=== PATIENT | female | born 1960 | race Caucasian/White ===

== ENCOUNTER 2016-04-20 12:00 | Inpatient (IN) | payer OTHER ==
[~2016-04-20] VITALS: Ht 152.4 cm; Wt 75.7 kg
[~2016-04-20 12:00] MED LIST: ADVIN10/60 INH; ALBU1AER9 INH; B COCAP3 PO; CRG25 PO; DULO60CA44 PO; FLUT0.15 NAE; HYDR25CA PO; IBUP-1050 PO; MARIJAUNA INH; MIRT30TA2 PO
[2016-04-20] MEDS ORDERED: VNTHFA/IN INH (12:28)
[2016-04-20] MEDS ORDERED: SODIUM CHLORIDE 0.9% 1000ML 1,000 ML IV STA (13:02)
--- NOTE | 2016-04-20 13:37 | DIAGNOSTIC IMAGING REPORT ---
CHEST ONE VIEW PORTABLE CLINICAL HISTORY: Acute change in mental status COMPARISON STUDY: October 07, 2012 FINDINGS: The heart is at the upper limits of normal in size. There is no overt failure. There is no focal pulmonary consolidation. There are no pleural effusions.[ IMPRESSION: No active disease in the chest. Electronically signed by: Bethel Olivas M.D. 04/20/2016 1:36 PM Dictated Date/Time: 04/20/2016 1:28 PM
--- NOTE | 2016-04-20 13:45 | DIAGNOSTIC IMAGING REPORT ---
HEAD CT NONCONTRAST CT DOSE: HISTORY: Altered mental status. Confusion. TECHNIQUE: Multiaxial CT images of the head were performed without the use of intravenous contrast. Automated exposure control was utilized for this study. Comparison: Head CT 11/25/2013. Findings: Mild mucosal thickening within the ethmoid air cells. The mastoid air cells are clear. The calvarium and skull base are intact. The ventricles and sulci are within normal limits. There is no mass, hematoma, midline shift, or acute infarct. Small hypodensity within the left parietal lobe remains unchanged. This favors an old lacunar infarct. Impression: No significant change compared to the prior study. No acute intracranial abnormality. Electronically signed by: Guevara Germain M.D. 04/20/2016 1:44 PM Dictated Date/Time: 04/20/2016 1:40 PM
--- NOTE | 2016-04-20 13:48 | DIAGNOSTIC IMAGING REPORT ---
CT OF THE CERVICAL SPINE CLINICAL HISTORY: Neck pain status post trauma COMPARISON STUDY: No previous studies for comparison. CT DOSE: 1045.13 mGy.cm TECHNIQUE: CT scan of the cervical spine was performed from the skull base to the thoracic inlet. Images are reviewed in the axial, sagittal, and coronal planes. IV contrast was not administered for this examination. FINDINGS: The visualized portions of the lung apices reveal no evidence of pneumothorax. The prevertebral soft tissues are normal. No fractures or subluxations are visualized. There are mild degenerative changes most pronounced at the C5-6 level. There is straightening of the normal cervical lordosis. IMPRESSION: No evidence of acute fracture or traumatic subluxation. Electronically signed by: Bethel Olivas M.D. 04/20/2016 1:46 PM Dictated Date/Time: 04/20/2016 1:45 PM
[2016-04-20 14:06] LABS: BASO % 0.4 %; BASO ABS # 0.03 K/uL (0-0.2); COMPLETE YES; HEMATOCRIT 38.7 % (37-47); IG% 0.1 %; LYMPH % 37.8 %; LYMPH ABS # 2.55 K/uL (1.2-3.4); MEAN CELL VOLUME 96.3 fL (80-100); MEAN CORPUSCULAR HEMOGLOBIN 32.8 pg (25-34); MEAN CORPUSCULAR HGB CONC 34.1 g/dl (32-36); MEAN PLATELET VOLUME 8.7 fL (7.4-10.4); MONO % 7.4 %; NEUT % 51.3 %; PLATELET COUNT 371 K/uL (130-400); RED BLOOD COUNT 4.02 M/uL (4.2-5.4); WHITE BLOOD COUNT 6.74 K/uL (4.8-10.8)
[2016-04-20 14:13] LABS: PARTIAL THROMBOPLASTIN RATIO 1.1; PROTHROMBIN TIME (PATIENT) 11.2 SECONDS (9.0-12.0)
[2016-04-20 14:17] LABS: URINE APPEARANCE CLEAR (CLEAR); URINE BILIRUBIN NEG (NEG); URINE COLOR YELLOW; URINE EPITHELIAL CELL AUTO 0-5 /lpf (0-5); URINE NITRITE NEG (NEG); URINE SPECIFIC GRAVITY 1.014 (1.000-1.030); UROBILINOGEN NEG (NEG); ZZURINE CULT IF INDIC CATH NO
[2016-04-20 14:19] LABS: MANUAL MICROSCOPIC REQUIRED? NO; REVIEW REQ? NO
[2016-04-20 14:23] LABS: ALT/SGPT 22 U/L (12-78); BLOOD UREA NITROGEN 7 mg/dl (7-18); BUN/CREATININE RATIO 10.1 (10-20); CALCIUM 8.8 mg/dl (8.5-10.1); CARBON DIOXIDE 24 mmol/L (21-32); CHLORIDE 114 mmol/L (98-107); CREATININE 0.73 mg/dl (0.60-1.20); GLUCOSE 82 mg/dl (70-99); POTASSIUM 3.5 mmol/L (3.5-5.1); SODIUM 146 mmol/L (136-145)
[2016-04-20 14:31] LABS: ALKALINE PHOSPHATASE 72 U/L (45-117); AST/SGOT 14 U/L (15-37)
[2016-04-20 14:43] LABS: BENZODIAZEPINE, URINE POS (NEG); COCAINE,URINE NEG (NEG); PHENCYCLIDINE, URINE NEG (NEG)
[2016-04-20 14:46] LABS: ACETAMINOPHEN < 2 ug/ml (10-30)
--- NOTE | 2016-04-20 15:03 | EMERGENCY ROOM VISIT NOTE ---
History Report prepared by Vidya: Klever Kuo Under the Supervision of: Dr. Shreyas Alberts D.O. First contact with patient: 12:55 Chief Complaint: ALTERED MENTAL STATUS Stated Complaint: SICK, RETAINING FLUIDS, Nursing Triage Summary: Pt reports she has been sick with a cough for a couple weeks recently on keflex and z pack for this last night pt noticed her balanced was off, she has been falling Pt with abrasion type wound to left chest, does not know how she got it Bilat hands and feet swollen that started yesterday. Facial swelling Healing burn to left post forearm at bedside and reports pt is "off" Pt very sleeping, opens eyes to verbal stimuli History of Present Illness The patient is a 55 year old female who presents to the Emergency Room for an altered mental status that began last night several hours prior to arrival. The patient states that when she woke up this morning she was off balance. She fell multiple times throughout this morning, secondary to her lack of coordination. She denies passing out from these falls. The patient was recently on an Azithromycin-Sal for an upper respiratory infection that began 1.5 weeks prior to this visit. The patient does note having prescriptions for an unspecified Benzodiazepine, but denies trying to overdose today. Patient is confused and has difficulty staying awake during interview. History is limited secondary to this. 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 A total of 10 systems reviewed and were otherwise negative. Past Medical & Surgical Medical Problems: (1) Alcohol intoxication (2) Altered mental status (3) Benzodiazepine withdrawal (4) Chronic obstructive lung disease (5) Gait instability (6) Mood disorder (7) Seizure (8) Seizure (9) Seizure (10) Superficial laceration Family History Diabetes mellitus FH: lung disease Hypertension Seizures Social History Smoking Status: Current Every Day Smoker Drug Use: marijuana Marital Status: Housing Status: lives with family Occupation Status: disabled Current/Historical Medications Scheduled B Complex W/ C (Vitamin B Complex-C), 1 CAP PO DAILY Carvedilol (Carvedilol), 25 MG PO BID Duloxetine Hcl (Cymbalta), 60 MG PO DAILY Fluticasone Prop/Salmeterol (Advair Diskus 100/50 60 Dose), 1 PUFF INH BID Hydroxyzine Pamoate (Vistaril), 1 CAP PO BID Mirtazapine Soltab (Remeron Soltab), 30 MG PO HS Scheduled PRN Albuterol Hfa (Ventolin Hfa), 2 PUFFS INH QID PRN for copd Fluticasone Propionate (Nasal) (Flonase Allergy Relief), 2 SPRAYS PURVI DAILY PRN for ALLERGIC REACTION Ibuprofen (Advil), 400-600 MG PO Q6H PRN for Pain or Fever Allergies Coded Allergies: Codeine (Verified Allergy, Intermediate, WELTS/HIVES, 04/20/16) TOLERATES PERCOCET Morphine (Verified Allergy, Unknown, HIVES/WELTS, 04/20/16) TOLERATES PERCOCET Sulfamethoxazole w/Trimethoprim (Verified Adverse Reaction, Mild, GI SYMPTOMS, 04/20/16) Physical Exam Vital Signs Date Time Temp Pulse Resp B/P Pulse Ox O2 Delivery O2 Flow Rate FiO2 04/20/16 15:17 71 16 139/96 95 Room Air 04/20/16 13:56 74 16 160/105 98 Room Air 04/20/16 12:27 71 04/20/16 12:09 36.9 79 18 146/102 96 Room Air Physical Exam GENERAL: Patient is confused, sitting in bed. Awakens to verbal stimuli. HEAD: Normocephalic, atraumatic. EYE EXAM: normal conjunctiva, Pupils are 2 mm bilaterally and EOM's intact OROPHARYNX: no exudate, no erythema, lips, buccal mucosa, and tongue normal and mucous membranes are dry NECK: supple, no nuchal rigidity, no adenopathy, non-tender CHEST: stable to compression anteriorly and posteriorly LUNGS: Clear to auscultation. Normal chest wall mechanics HEART: no murmurs, S1 normal and S2 normal ABDOMEN: abdomen soft, non-tender, normo-active bowel sounds, no masses, no rebound or guarding. BACK: Back is symmetrical on inspection and there is no deformity, no midline tenderness, no CVA tenderness. Pelvis: Stable to compression anteriorly and posteriorly SKIN: no rashes and no bruising UPPER EXTREMITIES: upper extremities are grossly normal. LOWER EXTREMITIES: No pitting edema. NEURO EXAM: Falls asleep when not stimulated, awakens to voice. No focal deficit. Oriented to place, not oriented to year or date. Somnolent. Normal sensorium, cranial nerves II-XII intact, normal speech, no weakness of arms, no weakness of legs. No drift. Finger to nose intact. Gross sensation intact. Medical Decision & Procedures ER Provider Diagnostic Interpretation: Xray results per the radiologist and my interpretation. Other results have been interpreted by the radiologist and reviewed by me. CT OF THE CERVICAL SPINE CLINICAL HISTORY: Neck pain status post trauma COMPARISON STUDY: No previous studies for comparison. CT DOSE: 1045.13 mGy.cm TECHNIQUE: CT scan of the cervical spine was performed from the skull base to the thoracic inlet. Images are reviewed in the axial, sagittal, and coronal planes. IV contrast was not administered for this examination. FINDINGS: The visualized portions of the lung apices reveal no evidence of pneumothorax. The prevertebral soft tissues are normal. No fractures or subluxations are visualized. There are mild degenerative changes most pronounced at the C5-6 level. There is straightening of the normal cervical lordosis. IMPRESSION: No evidence of acute fracture or traumatic subluxation. Electronically signed by: Bethel Olivas M.D. 04/20/2016 1:46 PM Dictated Date/Time: 04/20/2016 1:45 PM CHEST ONE VIEW PORTABLE CLINICAL HISTORY: Acute change in mental status COMPARISON STUDY: October 07, 2012 FINDINGS: The heart is at the upper limits of normal in size. There is no overt failure. There is no focal pulmonary consolidation. There are no pleural effusions.[ IMPRESSION: No active disease in the chest. Electronically signed by: Bethel Olivas M.D. 04/20/2016 1:36 PM Dictated Date/Time: 04/20/2016 1:[address] CT DOSE: HISTORY: Altered mental status. Confusion. TECHNIQUE: Multiaxial CT images of the head were performed without the use of intravenous contrast. Automated exposure control was utilized for this study. Comparison: Head CT 11/25/2013. Findings: Mild mucosal thickening within the ethmoid air cells. The mastoid air cells are clear. The calvarium and skull base are intact. The ventricles and sulci are within normal limits. There is no mass, hematoma, midline shift, or acute infarct. Small hypodensity within the left parietal lobe remains unchanged. This favors an old lacunar infarct. Impression: No significant change compared to the prior study. No acute intracranial abnormality. Electronically signed by: Guevara Germain M.D. 04/20/2016 1:44 PM Dictated Date/Time: 04/20/2016 1:40 PM Laboratory Results 04/20/16 13:43 Red Blood Count 4.02, Mean Corpuscular Volume 96.3, Mean Corpuscular Hemoglobin 32.8, Mean Corpuscular Hemoglobin Concent 34.1, Mean Platelet Volume 8.7, Neutrophils (%) (Auto) 51.3, Lymphocytes (%) (Auto) 37.8, Monocytes (%) (Auto) 7.4, Eosinophils (%) (Auto) 3.0, Basophils (%) (Auto) 0.4, Neutrophils # (Auto) 3.45, Lymphocytes # (Auto) 2.55, Monocytes # (Auto) 0.50, Eosinophils # (Auto) 0.20, Basophils # (Auto) 0.03 04/20/16 13:43 Test 04/20/16 12:31 04/20/16 13:15 04/20/16 13:43 Bedside Glucose 100 mg/dl (70-90) Urine Color YELLOW Urine Appearance CLEAR (CLEAR) Urine pH 5.0 (4.5-7.5) Urine Specific Mck[place] 1.014 (1.000-1.030) Urine Protein NEG (NEG) Urine Glucose (UA) NEG (NEG) Urine Ketones NEG (NEG) Urine Occult Blood NEG (NEG) Urine Nitrite NEG (NEG) Urine Bilirubin NEG (NEG) Urine Urobilinogen NEG (NEG) Urine Leukocyte Esterase NEG (NEG) Urine WBC (Auto) 0 /hpf (0-5) Urine RBC (Auto) 0-4 /hpf (0-4) Urine Hyaline Casts (Auto) 0 /lpf (0-5) Urine Epithelial Cells (Auto) 0-5 /lpf (0-5) Urine Bacteria (Auto) NEG (NEG) Urine Opiates Screen NEG (NEG) Urine Methadone, Qualitative NEG (NEG) Urine Barbiturates NEG (NEG) Urine Phencyclidine (PCP) Level NEG (NEG) Ur Amphetamine/Methamphetamine NEG (NEG) MDMA (Ecstasy) Screen NEG (NEG) Urine Benzodiazepines Screen POS (NEG) Urine Cocaine Metabolite NEG (NEG) Urine Marijuana (THC) POS (NEG) White Blood Count 6.74 K/uL (4.8-10.8) Red Blood Count 4.02 M/uL (4.2-5.4) Hemoglobin 13.2 g/dL (12.0-16.0) Hematocrit 38.7 % (37-47) Mean Corpuscular Volume 96.3 fL (80-100) Mean Corpuscular Hemoglobin 32.8 pg (25-34) Mean Corpuscular Hemoglobin Concent 34.1 g/dl (32-36) Platelet Count 371 K/uL (130-400) Mean Platelet Volume 8.7 fL (7.4-10.4) Neutrophils (%) (Auto) 51.3 % Lymphocytes (%) (Auto) 37.8 % Monocytes (%) (Auto) 7.4 % Eosinophils (%) (Auto) 3.0 % Basophils (%) (Auto) 0.4 % Neutrophils # (Auto) 3.45 K/uL (1.4-6.5) Lymphocytes # (Auto) 2.55 K/uL (1.2-3.4) Monocytes # (Auto) 0.50 K/uL (0.11-0.59) Eosinophils # (Auto) 0.20 K/uL (0-0.5) Basophils # (Auto) 0.03 K/uL (0-0.2) RDW Standard Deviation 49.5 fL (36.4-46.3) RDW Coefficient of Variation 13.9 % (11.5-14.5) Immature Granulocyte % (Auto) 0.1 % Immature Granulocyte # (Auto) 0.01 K/uL (0.00-0.02) Prothrombin Time 11.2 SECONDS (9.0-12.0) Prothromb Time International Ratio 1.0 (0.9-1.1) Activated Partial Thromboplast Time 28.9 SECONDS (21.0-31.0) Partial Thromboplastin Ratio 1.1 Anion Gap 8.0 mmol/L (3-11) Est Creatinine Clear Calc Drug Dose 79.6 ml/min Estimated GFR () 109.0 Estimated GFR (Non- 94.0 BUN/Creatinine Ratio 10.1 (10-20) Calcium Level 8.8 mg/dl (8.5-10.1) Total Bilirubin 0.3 mg/dl (0.2-1) Direct Bilirubin < 0.1 mg/dl (0-0.2) Aspartate Amino Transf (AST/SGOT) 14 U/L (15-37) Alanine Aminotransferase (ALT/SGPT) 22 U/L (12-78) Alkaline Phosphatase 72 U/L (45-117) Troponin I < 0.015 ng/ml (0-0.045) Total Protein 6.6 gm/dl (6.4-8.2) Albumin 3.5 gm/dl (3.4-5.0) Salicylates Level 3.9 mg/dl (2.8-20) Acetaminophen Level < 2 ug/ml (10-30) Ethyl Alcohol mg/dL < 3.0 mg/dl (0-3) Laboratory results per my review. Medications Administered Medications (Trade) Dose Ordered Sig/Jeff Route Start Time Stop Time Status Last Admin Dose Admin Sodium Chloride (Nss 1000ml) 1,000 ml @ 999 mls/hr Q1H1M STAT IV 04/20/16 13:02 04/20/16 14:02 DC 04/20/16 13:02 999 MLS/HR ECG Indication: altered mental status Rate (beats per minute): 57 Rhythm: sinus bradycardia Findings: no ectopy, other (Normal axis) ED Course ED COURSE: Vital signs were reviewed and showed Normal Vitals The patients medical record was reviewed The above diagnostic studies were performed and reviewed. ED treatments and interventions as stated above. 1257: The patient was evaluated in room C2. A complete history and physical examination was performed. 1302: Ordered Sodium Chloride 1000 mL @ 999 mL/hr IV. 1356: I spoke to the patient's at this time. He notes that the confusion started last night. She has never had an episode such as this before. 1436: I put a page out for the [facility] hospitalist at this time. 1505: I discussed the case with Dr. Avery at this time, he will evaluate the patient for further treatment. 1510: Upon reevaluation, the patient is comfortable and improving mentally.I discussed my findings with the patient and understands and agrees with the treatment plan. Based on the patients age, coexisting illnesses, exam and lab findings the decision to treat as an inpatient was made. The patient remained stable while under my care. The patient will be evaluated for further management. Medical Decision Differential diagnosis: Etiologies such as metabolic, infection, hypoglycemia, electrolyte abnormalities , cardiac sources, intracerebral event, toxicologic, neurologic, as well as others were entertained. Patient is a 55-year-old female was brought in by the for recurrent falls patient which has been present since last night. He notes that she has been on antibiotics for recent upper respiratory infection without improvement. Patient denies any fevers. She does awaken to voice and painful stimulant. She is nonfocal on exam. CT head was negative. Patient has no other complaints. She does have previous benzodiazepine overdoses upon review of the chart. Labs are remarkable for mild hypernatremia. Remainder BMP, LFTs and AST are unremarkable. Troponin was negative. Tox was remarkable for benzos and marijuana. Salicylates and Tylenol are negative. Alcohol is negative. UA was negative. Patient is slightly improving throughout her course in the ER. I do question whether this is an overdose of medications. Case discussed with internal medicine and she was admitted for further workup. Consults Time Called: [phone] Consulting Physician: Dr. Avery - [facility] hospitalist Returned Call: [phone] I discussed the case with Dr. Avery at this time, he will evaluate the patient for further treatment. Impression Primary Impression: Altered mental status Additional Impressions: Recurrent falls Hypernatremia Scribe Attestation The scribe's documentation has been prepared under my direction and personally reviewed by me in its entirety. I confirm that the note above accurately reflects all work, treatment, procedures, and medical decision making performed by me. Departure Information Dispostion Being Evaluated By Hospitalist Referrals Agnie Cartre C.R.N.P. (PCP) Patient Instructions My [facility] Problem Qualifiers Primary Impression: Altered mental status Altered mental status type: unspecified Qualified Codes: R41.82 - Altered mental status, unspecified
[2016-04-20] MEDS ORDERED: ALUMINUM/MAGNESIUM/SIMETH (MAALOX MAX) 30 ML UDC PO PRN (15:15)
[2016-04-20] MEDS ORDERED: MAGNESIUM HYDROXIDE SUSP 30 ML UDC PO PRN (15:15)
[2016-04-20] MEDS ORDERED: FLUTICASONE PROPIONATE NA SPR 16 GM BTL NAE PRN (15:15)
[2016-04-20] MEDS ORDERED: ZOLPIDEM TARTRATE 5 MG TAB PO PRN (15:15)
[2016-04-20] MEDS ORDERED: ALBUTEROL HFA 8 GM INHALER INH PRN (15:15)
[2016-04-20] MEDS ORDERED: ALBUTEROL 0.083% NEBU SOLN 3 ML VIAL INH PRN (16:00)
[2016-04-20] MEDS ORDERED: OPTIRAY 320 IV PRN (16:00)
--- NOTE | 2016-04-20 16:30 | History and Physical ---
History & Physical Date & Time of Service: Apr 20, 2016 at 15:49 Chief Complaint: Sick, Retaining Fluids, Primary Care Physician: Angie Carter C.R.N.P. History of Present Illness Source: patient, family 55 y/o F w/Hx polysubstance abuse, COPD, CAD/DE presents with multiple complaints including a productive cough for > 10 days, edema of her face, hand, legs and somnolence with an unsteady gait over the past 1-2 days. She is somnolent, difficult to wake up and slow to answer questions at the time of evaluation. She has a history of benzodiazepine abuse which is present in her UDS although she initially denied taking any. She had violent coughing spells a few times during the course of admission. She was not able to confirm any chest pain, fevers, N/V/D or dysuria. Past Medical/Surgical History Medical Problems: (1) Alcohol intoxication Status: Resolved (2) Benzodiazepine withdrawal Status: Resolved (3) Chronic obstructive lung disease Status: Chronic (4) Mood disorder Status: Chronic (5) Seizure Status: Resolved 6) Polysubstance abuse including Benzodiazepines, THC, Tobacco, ETOH 7) CAD - history of DE 8) Depression 9) Hypertension Family History Diabetes mellitus FH: lung disease Hypertension Seizures Social History 1.5 pack QD > 20 years Hx ETOH abuse - denies recent drinking Hx Benzodiazepine abuse and withdrawal Smoke Marijuana frequently Smoking Status: Current Every Day Smoker Drug Use: marijuana Marital Status: Occupational Status: disabled Immunizations History of Influenza Vaccine: No History of Tetanus Vaccine?: No History of Pneumococcal: No History of Hepatitis B Vaccine: No Allergies Coded Allergies: Codeine (Verified Allergy, Intermediate, WELTS/HIVES, 04/20/16) TOLERATES PERCOCET Morphine (Verified Allergy, Unknown, HIVES/WELTS, 04/20/16) TOLERATES PERCOCET Sulfa Drugs (Verified Allergy, Unknown, GI SYMPTOMS, 04/20/16) Sulfamethoxazole w/Trimethoprim (Verified Allergy, Unknown, GI SYMPTOMS, ) Home Medications Scheduled B Complex W/ C (Vitamin B Complex-C), 1 CAP PO DAILY Carvedilol (Carvedilol), 25 MG PO BID Duloxetine Hcl (Cymbalta), 60 MG PO DAILY Fluticasone Prop/Salmeterol (Advair Diskus 100/50 60 Dose), 1 PUFF INH BID Hydroxyzine Pamoate (Vistaril), 1 CAP PO BID Mirtazapine Soltab (Remeron Soltab), 30 MG PO HS Scheduled PRN Albuterol Hfa (Ventolin Hfa), 2 PUFFS INH QID PRN for copd Fluticasone Propionate (Nasal) (Flonase Allergy Relief), 2 SPRAYS PURVI DAILY PRN for ALLERGIC REACTION Ibuprofen (Advil), 400-600 MG PO Q6H PRN for Pain or Fever Review of Systems Constitutional: No chills, No fever, No sweats Eyes: No eye pain, No worsening of vision ENT: No hearing loss, No nasal symptoms, No unusual epistaxis Respiratory: + cough, + dyspnea at rest, + dyspnea on exertion, + shortness of breath, + sputum, No wheezing Cardiovascular: No PND, No chest pain, No orthopnea Abdomen: No nausea, No pain, No vomiting Musculoskeletal: No joint pain, No muscle pain Genitourinary - Female: No dysuria, No urinary frequency, No urinary urgency Neurologic: + balance problems, + problem reported (Somnolent - unsteady gait) , + weakness, No memory loss Psychiatric: + depression symptoms Endocrine: + fatigue Hematologic / Lymphatic: No abnormal bleeding/bruising Integumentary: No rash Allergic / Immunologic: No environmental allergies Physical Exam Vital Signs Date Time Temp Pulse Resp B/P Pulse Ox O2 Delivery O2 Flow Rate FiO2 04/20/16 13:56 74 16 160/105 98 Room Air 04/20/16 12:27 71 04/20/16 12:09 36.9 79 18 146/102 96 Room Air General Appearance: WD/WN, no apparent distress Head: normocephalic, atraumatic Eyes: normal inspection, PERRL, EOMI ENT: normal ENT inspection, hearing grossly normal, TMs normal, pharynx normal Neck: supple, no JVD Respiratory/Chest: chest non-tender, no respiratory distress, + decreased breath sounds, + pertinent finding (Poor air entry - decreased at R base - no clear wheezing) Cardiovascular: regular rate, rhythm, no murmur Abdomen/GI: normal bowel sounds, non tender, soft Back: normal inspection, no CVA tenderness, no muscle spasm, normal range of motion Extremities/Musculoskelatal: normal capillary refill, normal range of motion, + pedal edema, + pertinent finding (Edema in hands and feet) Neurologic/Psych: oriented x 3, + pertinent finding (Pt is somnolent but oriented and able to answer questions when she is awake - she could not participate in a full neuro exam due to somnolence) Diagnostics Laboratory Results Results Past 24 Hours Test 04/20/16 12:31 04/20/16 13:15 04/20/16 13:43 Range/Units Bedside Glucose 100 70-90 mg/dl Urine Color YELLOW Urine Appearance CLEAR CLEAR Urine pH 5.0 4.5-7.5 Urine Specific [place] 1.014 1.000-1.030 Urine Protein NEG NEG Urine Glucose (UA) NEG NEG Urine Ketones NEG NEG Urine Occult Blood NEG NEG Urine Nitrite NEG NEG Urine Bilirubin NEG NEG Urine Urobilinogen NEG NEG Urine Leukocyte Esterase NEG NEG Urine WBC (Auto) 0 0-5 /hpf Urine RBC (Auto) 0-4 0-4 /hpf Urine Hyaline Casts (Auto) 0 0-5 /lpf Urine Epithelial Cells (Auto) 0-5 0-5 /lpf Urine Bacteria (Auto) NEG NEG Urine Opiates Screen NEG NEG Urine Methadone, Qualitative NEG NEG Urine Barbiturates NEG NEG Urine Phencyclidine (PCP) Level NEG NEG Ur Amphetamine/Methamphetamine NEG NEG MDMA (Ecstasy) Screen NEG NEG Urine Benzodiazepines Screen POS NEG Urine Cocaine Metabolite NEG NEG Urine Marijuana (THC) POS NEG White Blood Count 6.74 4.8-10.8 K/uL Red Blood Count 4.02 4.2-5.4 M/uL Hemoglobin 13.2 12.0-16.0 g/dL Hematocrit 38.7 37-47 % Mean Corpuscular Volume 96.3 80-100 fL Mean Corpuscular Hemoglobin 32.8 25-34 pg Mean Corpuscular Hemoglobin Concent 34.1 32-36 g/dl Platelet Count 371 130-400 K/uL Mean Platelet Volume 8.7 7.4-10.4 fL Neutrophils (%) (Auto) 51.3 % Lymphocytes (%) (Auto) 37.8 % Monocytes (%) (Auto) 7.4 % Eosinophils (%) (Auto) 3.0 % Basophils (%) (Auto) 0.4 % Neutrophils # (Auto) 3.45 1.4-6.5 K/uL Lymphocytes # (Auto) 2.55 1.2-3.4 K/uL Monocytes # (Auto) 0.50 0.11-0.59 K/uL Eosinophils # (Auto) 0.20 0-0.5 K/uL Basophils # (Auto) 0.03 0-0.2 K/uL RDW Standard Deviation 49.5 36.4-46.3 fL RDW Coefficient of Variation 13.9 11.5-14.5 % Immature Granulocyte % (Auto) 0.1 % Immature Granulocyte # (Auto) 0.01 0.00-0.02 K/uL Prothrombin Time 11.2 9.0-12.0 SECONDS Prothromb Time International Ratio 1.0 0.9-1.1 Activated Partial Thromboplast Time 28.9 21.0-31.0 SECONDS Partial Thromboplastin Ratio 1.1 Sodium Level 146 136-145 mmol/L Potassium Level 3.5 3.5-5.1 mmol/L Chloride Level 114 98-107 mmol/L Carbon Dioxide Level 24 21-32 mmol/L Anion Gap 8.0 3-11 mmol/L Blood Urea Nitrogen 7 7-18 mg/dl Creatinine 0.73 0.60-1.20 mg/dl Est Creatinine Clear Calc Drug Dose 79.6 ml/min Estimated GFR () 109.0 Estimated GFR (Non- 94.0 BUN/Creatinine Ratio 10.1 10-20 Random Glucose 82 70-99 mg/dl Calcium Level 8.8 8.5-10.1 mg/dl Total Bilirubin 0.3 0.2-1 mg/dl Direct Bilirubin < 0.1 0-0.2 mg/dl Aspartate Amino Transf (AST/SGOT) 14 15-37 U/L Alanine Aminotransferase (ALT/SGPT) 22 12-78 U/L Alkaline Phosphatase 72 45-117 U/L Troponin I < 0.015 0-0.045 ng/ml Total Protein 6.6 6.4-8.2 gm/dl Albumin 3.5 3.4-5.0 gm/dl Salicylates Level 3.9 2.8-20 mg/dl Acetaminophen Level < 2 10-30 ug/ml Ethyl Alcohol mg/dL < 3.0 0-3 mg/dl Diagnostic Radiology CXR, CT head negative for acute findings EKG Sinus bradycardia Impression Assessment and Plan 55 y/o F w/Hx polysubstance abuse, COPD, CAD/DE presents with multiple complaints including a productive cough for > 10 days, edema of her face, hand, legs and somnolence with an unsteady gait over the past 1-2 days. She is somnolent, difficult to wake up and slow to answer questions at the time of evaluation. She has a history of benzodiazepine abuse which is present in her UDS although she initially denied taking any. She had violent coughing spells a few times during the course of admission. She was not able to confirm any chest pain, fevers, N/V/D or dysuria. 1) AMS - this may be multifactorial although would most likely be due to overuse of benzodiazepines or perhaps Remeron. She is not forthcoming or has a poor recollection regarding ingestion. We will hold all sedating meds and monitor her on telemetry. IVF provided. She denies recent ETOH use however we will provide a daily banana bag regardless as her immediate history is unclear. There is no current evidence of bacteremia/systemic infection leading to encephalopathy. 2) Unsteady gait - this may have preceded her somnolence - she is difficult to evaluate for focal defecits as she can barely stay awake - she does have a history of HTN, vascular disease and chain smoking and is therefore at significant risk of ischemic insult. We will r/o a CVA with MRA/MRI and obtain carotid doppler. 3) Persistent cough - pt was treated with Zithro the previous week. A CXR is negative however she is having violent productive coughing spells. A CT chest is pending. She will be treated for acute bronchitis w/COPD - Nebs, 02, antibiotics - steroids are held pending imaging results. 4) Anasarca - reports facial swelling which is subjective however she does have hand and feet swelling without history of CHF - an echo is pending and contrast is requested with the chest CT to r/o an obstructing mass. 5) Polysubstance abuse - Pt may need a mental health evaluation prior to D/C although this is a long-standing issue and any outpatient advice may be of limited value. 6) CAD - no evidence of ACS at present The pt has been repeatedly counseled regarding the hazards of smoking to no avail - she does not appear interested in quitting presently Full code - Heparin prophylaxis Total time for this admit including review of labs, records, EKG, imaging - discussion with pt/family and ER attending - 45 min Level of Care Telemetry Resuscitation Status FULL RESUSCITATION VTE Prophylaxis VTE Risk Assessment Done? Y/N: Yes Risk Level: Moderate Given or contraindicated: Unfractionated heparin SQ
[2016-04-20 17:02] VITALS: BP 155/96; PULSE 60; TEMP 36.9; Ht 152.4 cm; Wt 75.7 kg
[2016-04-20 17:15] VITALS: BP 187/118; PULSE 62; TEMP 36.8; O2SAT 99
[2016-04-20] MEDS ORDERED: D5NSS + 20MEQ KCL 1,000 ML IV SCH (17:30)
[2016-04-20] MEDS: AMPICILLIN/SULBACTAM SOD INJ 3,000 MG in SODIUM CHLORIDE 0.9% 100ML 100 ML IV SCH (19:41)
[2016-04-20] MEDS: FLUTICASONE/SALMETEROL 100/50 (ADVAIR) 14 PUFF/1 INHALER INH SCH (19:45)
[2016-04-20] MEDS: CARVEDILOL 25 MG TAB PO SCH (19:46)
[2016-04-20] MEDS: hydrOXYzine HCL 25 MG TAB PO SCH (19:46)
[2016-04-20 19:49] VITALS: BP 172/115; PULSE 77; TEMP 37; O2SAT 98
[2016-04-20] MEDS: ALBUT/IPRATROP 3MG/0.5MG NEB 3 ML VIAL INH SCH (19:52)
[2016-04-20 19:53] VITALS: PULSE 67; O2SAT 97
[2016-04-20 20:00] VITALS: O2SAT 97
--- NOTE | 2016-04-20 20:42 | DIAGNOSTIC IMAGING REPORT ---
CT SCAN OF THE CHEST WITH IV CONTRAST CLINICAL HISTORY: Change in mental status. Fluid retention. COMPARISON STUDY: Chest x-ray dated 04/20/2016. TECHNIQUE: Following the IV administration of 74 cc of Optiray 320, CT scan of the thorax was performed from the thoracic inlet to the upper abdomen. Images are reviewed in the axial, sagittal, and coronal planes. IV contrast was administered without complication. CT DOSE: 473.47 mGy.cm FINDINGS: Thyroid: Imaged portions of the thyroid gland are normal in size and attenuation. Thoracic aorta: There is mild atherosclerotic calcification of the thoracic aorta, which is normal in caliber and demonstrates standard 3-vessel arch anatomy. No dissection is seen. Pulmonary vasculature: The pulmonary trunk is normal in caliber. There are no filling defects identified in the central pulmonary vessels to indicate pulmonary embolus. Note that this examination was not protocoled for evaluation of the pulmonary arteries. Heart: The heart is top normal in size and without pericardial effusion. Lungs and pleural spaces: Mild paraseptal emphysematous changes present at the lung apices. There is no airspace consolidation or pleural effusion. Dependent atelectasis is noted. The trachea and central airways are clear. Scattered calcified granulomas are identified. A tiny cluster of tree-in-bud nodularity is seen in the right lower lobe on axial image #127. A 4 mm right upper lobe nodule is identified on image #123. Mediastinum: There is no mediastinal lymphadenopathy. Rosangela: Clear. Axillae: There is no axillary lymphadenopathy. Upper abdomen: A tiny hiatal hernia is identified. The gallbladder is contracted. Partially visualized upper abdominal viscera is otherwise within normal limits. Skeletal structures: The skeletal structures are osteopenic. No lytic or blastic bony lesions are seen. Mild compression deformities are noted in T5, T6, and T7. IMPRESSION: 1. Mild emphysema. 2. No airspace consolidation or pleural effusion is seen. 3. There is a tiny focus of tree-in-bud nodularity seen in the right lower lobe. This likely represents minimal inflammation. Clinical correlation will be required. 4. There is an indeterminant but low suspicion 4 mm right upper lobe pulmonary nodule. This can be followed as per the Fleischner criteria. See below. 5. There is no mediastinal or hilar lymphadenopathy. Please refer to below summary of Fleischner criteria recommendations for follow-up of incidental CT nodules (H Patrica, Guidelines for management of small pulmonary nodules detected on CT scans: A statement from the Fleischner Society, Radiology 237: [phone].) Low Risk Patient: Minimal or no smoking or other known risk factors for malignancy <=4 mm: No follow-up needed. >4-6 mm: Initial follow-up CT at 12 months; if unchanged, no further follow-up. >6-8 mm: Initial follow-up CT at 6-12 months then at 18-24 months if no change. >8 mm: Follow-up CT at \R\3, 9, 24 months, or PET and/or biopsy. High Risk Patient: History of smoking or other known risk factors <=4 mm: Follow-up at 12 months; if unchanged, no further follow-up. >4-6 mm: Initial follow-up CT at 6-12 months then at 18-24 months if no change. >6-8 mm: Initial follow-up CT at 3-6 months then at 9-12 and 24 months if no change. >8 mm: Same as low risk patient. Note: Nodule size measured as average of length and width. Ground glass or partly solid nodules may require longer follow-up to exclude indolent adenocarcinoma. Electronically signed by: Hardy Julien M.D. 04/20/2016 8:40 PM Dictated Date/Time: 04/20/2016 8:33 PM
[2016-04-20] MEDS ORDERED: MIRTAZAPINE SOLTAB 15 MG PO SCH (21:00)
--- NOTE | 2016-04-20 21:15 | DIAGNOSTIC IMAGING REPORT ---
ULTRASOUND OF THE CAROTID ARTERIES CLINICAL HISTORY: Strokelike symptoms.. COMPARISON STUDY: No priors. TECHNIQUE: Real-time, grayscale, and color Doppler sonography of the carotid arteries is performed. Images are reviewed in the transverse and longitudinal planes. FINDINGS: Blood pressure in the right arm measures 176/107 and blood pressure in the left arm measures 157/96. The carotid arteries are patent bilaterally and demonstrate antegrade flow. There are scattered tiny foci of atherosclerotic plaque. Normal doppler arterial waveforms are seen throughout. Velocity measurements are listed below. Common carotid peak systolic velocity (cm/sec): RIGHT: 61 LEFT: 69 ICA proximal peak systolic velocity (cm/sec): RIGHT: 31 LEFT: 29 ICA mid peak systolic velocity (cm/sec): RIGHT: 50 LEFT: 67 ICA distal peak systolic velocity (cm/sec): RIGHT: 59 LEFT: 43 ICA/CC peak systolic ratio: RIGHT: 1.0 LEFT: 1.0 Antegrade flow was shown in the vertebral arteries. The external carotid arteries are patent. IMPRESSION: 1. There is no sonographic evidence of hemodynamically significant stenosis in the right or left carotid arterial system. 2. Antegrade flow is shown in the vertebral arteries. Electronically signed by: Hardy Julien M.D. 04/20/2016 9:14 PM Dictated Date/Time: 04/20/2016 9:12 PM
--- NOTE | 2016-04-20 21:36 | DIAGNOSTIC IMAGING REPORT ---
MR ANGIOGRAM OF THE BRAIN CLINICAL HISTORY: Change in mental status. COMPARISON STUDY: CT of the brain dated 04/20/2016. TECHNIQUE: 3-D [id number] MR angiography of the intracranial circulation is performed. 3-D tumble views are created and assessed. IV contrast was not administered for this examination. The examination is modestly degraded by motion artifact. FINDINGS: The internal carotid arteries are widely patent bilaterally, as are the anterior and middle cerebral arteries. The vertebrobasilar system and posterior cerebral arteries are widely patent. The vertebral arteries are codominant. There is no aneurysm, high-grade stenosis, or focal vessel cutoff seen throughout the intracranial circulation. The brain parenchyma is normal as visualized. IMPRESSION: Unremarkable MR angiogram of the brain. Electronically signed by: Hardy Julien M.D. 04/20/2016 9:35 PM Dictated Date/Time: 04/20/2016 9:33 PM
--- NOTE | 2016-04-20 22:02 | DIAGNOSTIC IMAGING REPORT ---
MRI OF THE BRAIN WITHOUT IV CONTRAST CLINICAL HISTORY: Change in mental status. COMPARISON STUDY: CT of the brain dated 04/20/2016. TECHNIQUE: MRI of the brain was performed utilizing various T1 and T2-weighted sequences in the axial, sagittal, and coronal planes. IV contrast was not administered for this examination. The examination is modestly degraded by motion artifact. FINDINGS: Brain parenchyma: There is mild patchy subcortical and periventricular microangiopathic disease. The brain parenchyma is otherwise normal in appearance. There is no hemorrhage or mass effect. There is no restricted diffusion to suggest acute ischemia. Patel-white matter differentiation is preserved. No extra-axial fluid collection is seen. The cerebellar tonsils are normal in configuration. Ventricles, sulci, and cisterns: Normal in configuration. Megacisterna magna is incidentally noted. Pituitary and sella: Unremarkable. Intracranial vasculature: Normal flow voids are maintained at the skull base. Orbits: The bony orbits are grossly intact. Orbital contents are normal in appearance. Sinuses and mastoids: There is evidence of previous paranasal sinus surgery. Mild mucosal thickening is seen within the left maxillary antrum, left frontal sinus, and ethmoid sinuses. The mastoid air cells are clear. Calvarium: Unremarkable. Cervical cord: Partially visualized cervical spinal cord is normal in morphology and signal intensity. IMPRESSION: No acute intracranial abnormality. Electronically signed by: Hardy Julien M.D. 04/20/2016 10:01 PM Dictated Date/Time: 04/20/2016 9:57 PM
[2016-04-20] MEDS ORDERED: GADAVIST IV PRN (22:15)
--- NOTE | 2016-04-20 22:26 | DIAGNOSTIC IMAGING REPORT ---
MR ANGIOGRAM OF THE NECK COMBO CLINICAL HISTORY: Change in mental status. COMPARISON STUDY: Ultrasound of the carotid arteries dated 04/20/2016. TECHNIQUE: Axial 3-D [id number] MR angiography of the neck is performed. Subsequently, following the IV administration of 20 cc of Magnevist coronal MR angiogram of the neck was performed to corroborate the findings. 3-D reformats are created and assessed. Subtraction imaging was utilized. All measurements were calculated based on NASCET criteria. The examination is modestly degraded by motion artifact. FINDINGS: Visualized portions of the thoracic aorta are normal in caliber. The aortic arch demonstrates standard 3-vessel anatomy. The subclavian arteries are widely patent bilaterally. The right common carotid artery is widely patent, as are the right internal and external carotid arteries. The left common carotid artery is widely patent, as are the left internal and external carotid arteries. The vertebral arteries are widely patent and codominant. The visualized intracranial vessels at the skull base are within normal limits. The jugular veins are patent. IMPRESSION: Unremarkable MR angiogram of the neck. Electronically signed by: Hardy Julien M.D. 04/20/2016 10:24 PM Dictated Date/Time: 04/20/2016 10:22 PM
[2016-04-20] MEDS: AZITHROMYCIN IV 500 MG in DEXTROSE 5% 250ML 250 ML IV SCH (22:39)
[2016-04-21] VITALS (14 sets, daily range): BP systolic 126–167; BP diastolic 74–109; PULSE 61–92; TEMP 35.9–36.8; O2SAT 95–98
[2016-04-21] MEDS: MULTI-VITAMIN INFUSION INJ 10 ML, THIAMINE HCL INJ 100 MG, FoLIC ACID INJ 1 MG in SODIU... IV SCH ×2 (00:23→08:33)
[2016-04-21] MEDS: AMPICILLIN/SULBACTAM SOD INJ 3,000 MG in SODIUM CHLORIDE 0.9% 100ML 100 ML IV SCH ×4 (01:00→18:31)
[2016-04-21] MEDS: ALBUT/IPRATROP 3MG/0.5MG NEB 3 ML VIAL INH SCH ×4 (02:00→20:03)
--- NOTE | 2016-04-21 08:29 | Clinical Documentation Query ---
CLINICAL DOCUMENTATION QUERY Dr. AMARO, In your clinical opinion is this patient being managed for: ( X ) Toxic encephalopathy ( ) Other explanation of clinical findings (Please Explain) ( ) Unable to determine (Please Define) ( ) Need to Discuss ( ) Not Agree The medical record reflects the following clinical findings, treatment, and risk factors. Clinical Indicators: 55 yo female presented with a change in mental status. H/P indicates altered mental status most likely due to overuse of benzodiazepines or Remeron. Treatment: hold all sedating medications, tele, IV fluids, Risk Factors: hx of polysubstance abuse Please clarify and document your clinical opinion in the progress notes and discharge summary. Terms such as "probable", "suspected", "likely", "questionable", "possible", or "still to be ruled out" are acceptable. IF IN AGREEMENT, YOU MUST DOCUMENT ABOVE DIAGNOSTIC STATEMENT IN DAILY PROGRESS NOTES AND DISCHARGE SUMMARY. This document is not part of the patient's record. Thank You, Lauren Morton RN [phone]
[2016-04-21] MEDS ORDERED: HydrALAZINE HCL 20 MG/ML VIAL IV. PRN (08:30)
[2016-04-21] MEDS: FLUTICASONE/SALMETEROL 100/50 (ADVAIR) 14 PUFF/1 INHALER INH SCH ×2 (08:33→20:38)
[2016-04-21] MEDS: ASPIRIN 325 MG ECTAB PO SCH (08:34)
[2016-04-21] MEDS: CARVEDILOL 25 MG TAB PO SCH ×2 (08:34→20:39)
[2016-04-21] MEDS: DULOXETINE HCL 60 MG CAP PO SCH (08:34)
[2016-04-21] MEDS: hydrOXYzine HCL 25 MG TAB PO SCH ×2 (08:34→20:40)
[2016-04-21] MEDS ORDERED: METHYLPREDNISOLONE IV 125 MG in SYRINGE 0 ML IV ONE (09:00)
[2016-04-21] MEDS ORDERED: ALPRAZOLAM 0.5 MG TAB PO PRN (10:00)
--- NOTE | 2016-04-21 10:45 | ECHOCARDIOGRAM REPORT ---
*NOTICE TO RECEIVING DEMOCRAT AGENCY This information is strictly Confidential and protected under [place] law. [place] law prohibits you from making any further disclosure of this information unless further disclosure is expressly permitted by the written consent of the person to whom it pertains or is authorized by law. A general authorization for the release of medical or other information is not sufficient for this purpose. Hospital accepts no responsibility if the information is made available to any other person, INCLUDING THE PATIENT. Interpretation Summary * Name: MARIA ALEJANDRA BALL Study Date: 04/21/2016 06:47 AM BP: 129/84 mmHg * Patient Location: C.2E\S\E209\S\1 HR: 66 * : 1960 (M/d/yyyy) Gender: Female Height: 60 in * Age: 55 yrs Ethnicity: CA Weight: 161 lb * Ordering Physician: Law Avery * Referring Physician: Self, Referred * Performed By: Tami Castro RCS * * Reason For Study: CHF * BSA: 1.7 m2 * -- Conclusions -- * Left ventricular systolic function is normal. * No regional wall motion abnormalities noted. * Ejection Fraction = 60-65%. * There is mild tricuspid regurgitation. Procedure Details * A complete two-dimensional transthoracic echocardiogram was performed (2D, M-mode, Doppler and color flow Doppler). Left Ventricle * The left ventricle is normal in size. * There is normal left ventricular wall thickness. * Ejection Fraction = 60-65%. * Left ventricular systolic function is normal. * No regional wall motion abnormalities noted. Right Ventricle * The right ventricle is not well visualized. * The right ventricular systolic function is normal as assessed by tricuspid annular plane systolic excursion (TAPSE) (normal >1.5 cm). Atria * The left atrial size is normal. * Right atrial size is normal. * There is no evidence of atrial septal defect, but resolution does not allow assessment for a patent foramen ovale. Mitral Valve * The mitral valve is grossly normal. * There is no mitral valve stenosis. * There is trace mitral regurgitation. Tricuspid Valve * The tricuspid valve is not well visualized, but is grossly normal. * There is no tricuspid stenosis. * There is mild tricuspid regurgitation. Aortic Valve * The aortic valve is not well visualized. * The aortic valve opens well. * No hemodynamically significant valvular aortic stenosis. * No aortic regurgitation is present. Pulmonic Valve * The pulmonary valve is not well seen, but the Doppler examination is normal without significant regurgitation or stenosis. Great Vessels * The aortic root is normal size. * The pulmonary is not well visualized. Pericardium/Pleural * There is no pericardial effusion. Great Vessels * Normal inferior vena cava size and collapsability with sniff indicates a normal right atrial pressure of 3 mmHg MMode 2D Measurements and Calculations IVSd 0.89 cm IVSs 1.2 cm LVIDd 4.2 cm LVIDs 2.8 cm LVPWd 0.88 cm LVPWs 1.2 cm IVS/LVPW 1.0 FS 32.8 % EDV(Teich) 77.3 ml ESV(Teich) 29.7 ml EF(Teich) 61.6 % EDV(cubed) 72.5 ml ESV(cubed) 22.1 ml EF(cubed) 69.6 % % IVS thick 39.1 % % LVPW thick 34.4 % LV mass(C)d 114.4 grams LV mass(C)dI 67.2 grams/m\S\2 LV mass(C)s 100.7 grams LV mass(C)sI 59.1 grams/m\S\2 CO(Teich) 3.3 l/min CI(Teich) 2.0 l/min/m\S\2 SV(Teich) 47.6 ml SI(Teich) 28.0 ml/m\S\2 CO(cubed) 3.5 l/min CI(cubed) 2.1 l/min/m\S\2 SV(cubed) 50.5 ml SI(cubed) 29.7 ml/m\S\2 LVAd ap4 29.4 cm\S\2 LVLd ap4 8.3 cm EDV(MOD-sp4) 86.0 ml LVAs ap4 14.4 cm\S\2 LVLs ap4 6.4 cm ESV(MOD-sp4) 27.0 ml EF(MOD-sp4) 68.6 % LVAd ap2 26.7 cm\S\2 LVLd ap2 8.4 cm EDV(MOD-sp2) 71.0 ml LVAs ap2 14.2 cm\S\2 LVLs ap2 6.9 cm ESV(MOD-sp2) 26.0 ml EF(MOD-sp2) 63.4 % CO(MOD-sp4) 4.1 l/min CI(MOD-sp4) 2.4 l/min/m\S\2 SV(MOD-sp4) 59.0 ml SI(MOD-sp4) 34.7 ml/m\S\2 CO(MOD-sp2) 3.2 l/min CI(MOD-sp2) 1.9 l/min/m\S\2 SV(MOD-sp2) 45.0 ml SI(MOD-sp2) 26.4 ml/m\S\2 Doppler Measurements and Calculations MV E max shelly 114.5 cm/sec MV A max shelly 95.8 cm/sec MV E/A 1.2 MV P1/2t max shelly 119.2 cm/sec MV P1/2t 109.2 msec MVA(P1/2t) 2.0 cm\S\2 MV dec slope 319.8 cm/sec\S\2 MV dec time 0.26 sec Ao V2 max 173.1 cm/sec Ao max PG 12.0 mmHg Ao max PG (full) 5.9 mmHg LV V1 max PG 6.0 mmHg LV V1 max 122.9 cm/sec PA V2 max 113.4 cm/sec PA max PG 5.1 mmHg TR max shelly 268.2 cm/sec
[2016-04-21 12:30] LABS: BLOOD UREA NITROGEN 7 mg/dl (7-18); BUN/CREATININE RATIO 10.8 (10-20); CALCIUM 8.3 mg/dl (8.5-10.1); CARBON DIOXIDE 19 mmol/L (21-32); CHLORIDE 117 mmol/L (98-107); CREATININE 0.64 mg/dl (0.60-1.20); GLUCOSE 126 mg/dl (70-99); SODIUM 145 mmol/L (136-145)
--- NOTE | 2016-04-21 14:10 | Hospitalist Progress Note ---
Hospitalist Progress Note Date of Service Apr 21, 2016. Subjective Pt evaluation today including: conversation w/ patient, physical exam, chart review, lab review, review of studies, review of inpatient medication list The patient is more awake and alert. She was coughing a good bit earlier. She did not cough during my visit. No Chest pain. She is breathing comfortably. Additional Comments: A 10 system review was performed and all were negative. Positives were placed in the subjective section. Objective Vital Signs Date Time Temp Pulse Resp B/P Pulse Ox O2 Delivery O2 Flow Rate FiO2 04/21/16 12:42 36.8 92 18 158/109 98 Room Air 04/21/16 10:05 36.4 80 18 98 04/21/16 08:02 36.4 80 18 167/104 98 Room Air 04/21/16 07:45 98 Room Air 04/21/16 07:40 71 16 96 Room Air 04/21/16 04:00 Room Air 04/21/16 03:03 35.9 66 21 129/84 96 Room Air 04/21/16 02:00 70 16 95 Room Air 04/21/16 00:58 76 17 134/92 96 Room Air 04/21/16 00:05 36.5 61 14 132/99 97 Room Air 04/21/16 00:00 Room Air 04/20/16 20:00 97 Room Air 04/20/16 19:53 67 16 97 Room Air 04/20/16 19:49 37.0 77 18 172/115 98 04/20/16 17:15 36.8 62 20 187/118 99 Room Air 04/20/16 17:02 36.9 60 16 155/96 Room Air 04/20/16 15:17 71 16 139/96 95 Room Air Physical Exam Notes: GEN: Awake, alert, and oriented x 3. Not in acute distress HEENT: Tm's intact, no inflammation, EOMI, PERRLA, MMM Neck: Soft, supple Lungs: + expiratory wheezes. Heart: REG, nrl S1S2 without murmurs, rubs or gallops Abdomen: Soft, NT, ND, + BS EXT: No C/C/E NEURO: CN's II-XII grossly intact, non-focal Skin: warm, dry, no rashes PSYCH: cooperative. Laboratory Results Last 24 Hours Test 3/9/17 11:45 Sodium Level 145 mmol/L Potassium Level mmol/L Chloride Level 117 mmol/L Carbon Dioxide Level 19 mmol/L Anion Gap 9.0 mmol/L Blood Urea Nitrogen 7 mg/dl Creatinine 0.64 mg/dl Est Creatinine Clear Calc Drug Dose 92.4 ml/min Estimated GFR () 118.1 Estimated GFR (Non- 101.9 BUN/Creatinine Ratio 10.8 Random Glucose 126 mg/dl Calcium Level 8.3 mg/dl Magnesium Level mg/dl Assessment and Plan 1) Toxic encephalopathy - improving. Due to cumulative medication sedating effect. I did add xanax for prn dosing as we anticipate that the patient may become anxious or agitated. Furthermore, as she plans to continue taking at home, will prevent benzo withdraw seizures 2) COPD exacerbation - IV steroid, Nebs, supplemental oxygen. 3) HTN - I added hydralazine IV as a prn. Continue usual Carvedilol. Add clonidine. 4) CAD - by history. No issues this admission. DVT prophylaxis = TEDs, SCDs, Lovenox.
[2016-04-21] MEDS: ENOXAPARIN 40 MG/0.4 ML SYR SQ SCH (16:03)
[2016-04-21] MEDS: METHYLPREDNISOLONE IV 80 MG in SYRINGE 0 ML IV SCH (16:03)
[2016-04-21] MEDS: AZITHROMYCIN IV 500 MG in DEXTROSE 5% 250ML 250 ML IV SCH (20:38)
[2016-04-21] MEDS: CLONIDINE HCL 0.1 MG TAB PO SCH (20:39)
[2016-04-22] VITALS (8 sets, daily range): BP systolic 107–155; BP diastolic 69–98; PULSE 69–88; TEMP 36.5–36.9; O2SAT 93–98
[2016-04-22] MEDS: AMPICILLIN/SULBACTAM SOD INJ 3,000 MG in SODIUM CHLORIDE 0.9% 100ML 100 ML IV SCH ×3 (00:24→12:57)
[2016-04-22] MEDS: METHYLPREDNISOLONE IV 80 MG in SYRINGE 0 ML IV SCH ×3 (00:24→15:13)
[2016-04-22] MEDS: ALBUT/IPRATROP 3MG/0.5MG NEB 3 ML VIAL INH SCH ×3 (01:59→14:14)
[2016-04-22 05:53] LABS: COMPLETE YES; EOS % 0.1 %; HEMATOCRIT 34.9 % (37-47); IG% 0.2 %; LYMPH % 7.5 %; LYMPH ABS # 0.76 K/uL (1.2-3.4); MEAN CELL VOLUME 93.1 fL (80-100); MEAN CORPUSCULAR HEMOGLOBIN 32.5 pg (25-34); MEAN PLATELET VOLUME 8.9 fL (7.4-10.4); MONO % 0.8 %; NEUT % 91.4 %; PLATELET COUNT 353 K/uL (130-400); RED BLOOD COUNT 3.75 M/uL (4.2-5.4)
[2016-04-22 06:22] LABS: BUN/CREATININE RATIO 22.6 (10-20); CALCIUM 8.8 mg/dl (8.5-10.1); CREATININE 0.5 mg/dl (0.60-1.20); POTASSIUM 3.1 mmol/L (3.5-5.1)
[2016-04-22] MEDS: ACETAMINOPHEN 325 MG TAB PO PRN ×2 (07:45→15:08)
[2016-04-22] MEDS: DULOXETINE HCL 60 MG CAP PO SCH (08:31)
[2016-04-22] MEDS: ASPIRIN 325 MG ECTAB PO SCH (08:31)
[2016-04-22] MEDS: hydrOXYzine HCL 25 MG TAB PO SCH (08:31)
[2016-04-22] MEDS: FLUTICASONE/SALMETEROL 100/50 (ADVAIR) 14 PUFF/1 INHALER INH SCH (08:31)
[2016-04-22] MEDS: CARVEDILOL 25 MG TAB PO SCH (08:31)
[2016-04-22] MEDS: CLONIDINE HCL 0.1 MG TAB PO SCH (08:31)
[2016-04-22] MEDS: MULTI-VITAMIN INFUSION INJ 10 ML, THIAMINE HCL INJ 100 MG, FoLIC ACID INJ 1 MG in SODIU... IV SCH (08:31)
[2016-04-22] MEDS ORDERED: AZITHROMYCIN 250 MG TAB PO SCH (12:00)
[2016-04-22 14:06] LABS: BENZODIAZEPINE, URINE POS (NEG); COCAINE,URINE NEG (NEG); PHENCYCLIDINE, URINE NEG (NEG)
[2016-04-22] MEDS: ENOXAPARIN 40 MG/0.4 ML SYR SQ SCH (15:14)
[2016-04-22] MEDS ORDERED: AZIT250T PO (16:11)
[2016-04-22] MEDS ORDERED: PRED-301 PO (16:11)
--- NOTE | 2016-04-22 16:12 | Discharge Instructions ---
Discharge Instructions Date of Service Apr 22, 2016. Admission Reason for Admission: Altered Mental Status, Gait Instability Discharge Discharge Diagnosis / Problem: Altered mental status/bronchitis/COPD exacerbation Discharge Goals Goal(s): Improve function, Improve disease control Activity Recommendations Activity Limitations: resume your previous activity . Instructions / Follow-Up Instructions / Follow-Up PCP in 5-7 days Current Hospital Diet Patient's current hospital diet: AHA Diet (Heart Healthy) Discharge Diet Recommended Diet: AHA Diet (Heart Healthy) Procedures Procedures Performed: NONE. Pending Studies Studies pending at discharge: no Medical Emergencies . Who to Call and When: Medical Emergencies: If at any time you feel your situation is an emergency, please call 911 immediately. . Non-Emergent Contact Non-Emergency issues call your: Primary Care Provider . . "Provider Documentation" section prepared by Tato Prince. VTE Core Measure Inpt VTE Proph given/why not?: Unfractionated heparin SQ
--- NOTE | 2016-04-22 18:22 | Discharge Summary ---
Discharge Summary Date of Service Apr 22, 2016. Discharge Summary Admission Date: Apr 20, 2016 at 15:14 Discharge Date: Apr 22, 2016 Discharge Disposition: Home Principal Diagnosis: Toxic encephalopathy Problems/Secondary Diagnoses: Medication overdose Bronchitis COPD exacerbation Poly substance abuse. Immunizations: Have You Had Influenza Vaccine: No History of Tetanus Vaccine?: No History of Pneumococcal: No History of Hepatitis B Vaccine: No Procedures: NONE. Consultations: NONE> Medication Reconciliation New Medications: Azithromycin (Zithromax) 250 Mg Tab 250 MG PO DAILY, #4 TAB NS Prednisone (Prednisone) 5 Mg Tab 5 MG PO DIRECTED for 10 Days, #15 TAB NS Continued Medications: Albuterol Hfa (Ventolin Hfa) 200 Puffs/02370 Mcg Aers 2 PUFFS INH QID PRN for copd, #1 INHALER B Complex W/ C (Vitamin B Complex-C) 1 Cap Cap 1 CAP PO DAILY Carvedilol (Carvedilol) 25 Mg Tab 25 MG PO BID Duloxetine Hcl (Cymbalta) 60 Mg Cap 60 MG PO DAILY, CAP Fluticasone Prop/Salmeterol (Advair Diskus 100/50 60 Dose) 1 Ea Aerp 1 PUFF INH BID, INHALER Fluticasone Propionate (Nasal) (Flonase Allergy Relief) 50 Mcg/Act Spr 2 SPRAYS PURVI DAILY PRN for ALLERGIC REACTION Hydroxyzine Pamoate (Vistaril) 25 Mg Cap 1 CAP PO BID for 30 Days, #60 CAP 1 Refill Ibuprofen (Advil) 200 Mg Tab 400-600 MG PO Q6H PRN for Pain or Fever, TAB Mirtazapine Soltab (Remeron Soltab) 30 Mg Soltab 30 MG PO HS, TAB Discharge Exam A 10 system review was performed and all were negative. Positives were placed in the subjective section. GEN: Awake, alert, and oriented x 3. Not in acute distress HEENT: Tm's intact, no inflammation, EOMI, PERRLA, MMM. Mild "puffiness" noted under her eyes. Neck: Soft, supple Lungs: minimal expiratory wheeze b/l. Heart: REG, nrl S1S2 without murmurs, rubs or gallops Abdomen: Soft, NT, ND, + BS EXT: No C/C/E NEURO: CN's II-XII grossly intact, non-focal Skin: warm, dry, no rashes PSYCH: pleasant, cooperative, happy to be going home. Hospital Course The patient was admitted with symptoms of over sedation, fluid retention, and SOB/cough. Chest X-ray did not reveal pneumonia, I felt she had a bronchitis with COPD exacerbation and placed her on antibiotics and steroids first IV then to oral at discharge. The day following admission, the patient was awake and alert. We held medications that were sedating, however I did order prn benzo and alerted nursing that it was on orders if there were signs of withdraw. As patient was not aware it was ordered she proceeded to take her own that she brought along. As it turns out she had xanax, clonopin, and suboxone in her purse or otherwise hidden away. She had not reported to us on admission or even the first day I saw her lucid that she was taking suboxone. I felt the day of discharge that she here lung exam was improved, she was not coughing and wanted to go home. DVT prophylaxis = TEDs, SCDs, Lovenox. Total Time Spent: Greater than 30 minutes This includes examination of the patient, discharge planning, medication reconciliation, and communication with other providers. Discharge Instructions Please refer to the electronic Patient Visit Report (Discharge Instructions) for additional information. Follow-Up PCP 5-7 days.
[2016-04-23 15:21] LABS: HYDROXYETHYLFLURAZEPAM CONF NEGATIVE NG/ML (CUTOFF=50); HYDROXYMIDAZOLAM NEGATIVE NG/ML (CUTOFF=50); HYDROXYTRIAZOLAM CONF NEGATIVE NG/ML (CUTOFF=50); TEMAZEPAM CONF NEGATIVE NG/ML (CUTOFF=50)
[2016-04-26 02:59] LABS: HYDROXYETHYLFLURAZEPAM CONF NEGATIVE NG/ML (CUTOFF=50); HYDROXYMIDAZOLAM NEGATIVE NG/ML (CUTOFF=50); HYDROXYTRIAZOLAM CONF NEGATIVE NG/ML (CUTOFF=50); TEMAZEPAM CONF NEGATIVE NG/ML (CUTOFF=50)
== END 2016-04-22 16:43 | disposition home or self-care (01) | DRG 190 ==
LOC: ENRESERVDT → ENRESERVTM → C.EDC 12:11 → C.2E 15:14 → C.MED 04-21 12:15
PROVIDERS: ADMIT Internal Medicine; ATTEND Hospitalist
DX: J44.0 Chronic obstructive pulmonary disease with (acute) lower respiratory infection (principal); G92 Toxic encephalopathy; E87.0 Hyperosmolality and hypernatremia; J44.1 Chronic obstructive pulmonary disease with (acute) exacerbation; R26.9 Unspecified abnormalities of gait and mobility; F32.9 Major depressive disorder, single episode, unspecified; I25.10 Atherosclerotic heart disease of native coronary artery without angina pectoris; R41.82 Altered mental status, unspecified; R60.0 Localized edema; T42.4X4A Poisoning by benzodiazepines, undetermined, initial encounter; F19.10 Other psychoactive substance abuse, uncomplicated; F17.200 Nicotine dependence, unspecified, uncomplicated; R29.6 Repeated falls; J20.9 Acute bronchitis, unspecified; I10 Essential (primary) hypertension; F10.10 Alcohol abuse, uncomplicated; F12.10 Cannabis abuse, uncomplicated; I25.2 Old myocardial infarction; Z79.51 Long term (current) use of inhaled steroids; Z79.899 Other long term (current) drug therapy; Z79.1 Long term (current) use of non-steroidal anti-inflammatories (NSAID)

== ENCOUNTER → 2016-05-03 | Outpatient (CLI) | payer OTHER ==
[~2016-05-03] MED LIST changes: -ALBU1AER9 INH; +AZIT250T PO; -MARIJAUNA INH; +PRED-301 PO; +VNTHFA/IN INH
--- NOTE | 2016-05-03 10:34 | DIAGNOSTIC IMAGING REPORT ---
CT OF THE CHEST WITHOUT IV CONTRAST CLINICAL HISTORY: RT LUNG NODULE COMPARISON STUDY: 04/20/2016 CT DOSE: 323.51 mGy.cm TECHNIQUE: CT of the thorax was performed from the thoracic inlet to the lung bases. Images are reviewed in the axial, sagittal, and coronal planes. IV contrast was not administered for this examination. FINDINGS: Thyroid: Imaged portions of the thyroid gland are normal in appearance. Thoracic aorta: The thoracic aorta is normal in course and caliber, noting standard 3 vessel arch anatomy. Heart: The heart is normal in size and configuration, without pericardial effusion. Lungs and pleural spaces: No pleural effusions are visualized. There is mild pulmonary emphysema. There is a stable 4 mm right upper lobe pulmonary nodule as visualized in image #[id number]. There is no focal pulmonary consolidation. There is been resolution of the previous described tree-in-bud nodularity within the right lower lobe Mediastinum: There is no mediastinal lymphadenopathy. Rosangela: There is no evidence of pathologic hilar adenopathy given the limitations of a noncontrast study Axilla: Clear. Upper abdomen: Partially visualized upper abdominal viscera is within normal limits. Skeletal structures: There are no lytic or blastic osseous lesions. IMPRESSION: 1. Interval resolution of the right lower lobe tree-in-bud nodularity 2. Stable 4 mm right upper lobe pulmonary nodule 3. No evidence of focal pulmonary consolidation. No evidence of pathologic adenopathy. Electronically signed by: Bethel Olivas M.D. 05/03/2016 10:32 AM Dictated Date/Time: 05/03/2016 10:28 AM
== END | disposition home or self-care (01) ==
LOC: C.CTS 10:08
PROVIDERS: ATTEND Neuromusculoskeletal Medicine & OMM
DX: R91.1 Solitary pulmonary nodule (principal)

== ENCOUNTER → 2016-07-12 | Outpatient (CLI) | payer OTHER ==
[~2016-07-12] MED LIST changes: -PRED-301 PO
[2016-07-12 19:37] LABS: BASO ABS # 0.05 K/uL (0-0.2); COMPLETE YES; EOS % 3.7 %; HEMATOCRIT 40.6 % (37-47); LYMPH % 38.9 %; LYMPH ABS # 2.01 K/uL (1.2-3.4); MEAN CELL VOLUME 92.9 fL (80-100); MEAN CORPUSCULAR HGB CONC 34.5 g/dl (32-36); MEAN PLATELET VOLUME 9.7 fL (7.4-10.4); MONO % 10.4 %; PLATELET COUNT 316 K/uL (130-400); RED BLOOD COUNT 4.37 M/uL (4.2-5.4); WHITE BLOOD COUNT 5.17 K/uL (4.8-10.8)
== END | disposition home or self-care (01) ==
LOC: C.LABPBG 13:44
PROVIDERS: ATTEND Physician Assistant
DX: Z00.00 Encounter for general adult medical examination without abnormal findings (principal); Z13.1 Encounter for screening for diabetes mellitus; R53.83 Other fatigue